=== PATIENT | female | born 1960 | race Caucasian/White ===

== ENCOUNTER → 2016-10-18 | Outpatient (CLI) | payer BC ==
[~2016-10-18] MED LIST: ATEN-51 PO; iron PO; senna PO
== END | disposition home or self-care (01) ==
LOC: EEG 10:55
DX: R26.89 Other abnormalities of gait and mobility (principal); R42 Dizziness and giddiness; H93.19 Tinnitus, unspecified ear
CPT/HCPCS: 95819

== ENCOUNTER 2016-12-21 10:57 | Day surgery (SDC) | payer BC ==
[~2016-12-21] VITALS: Ht 160 cm; Wt 85.7 kg
[2016-12-21 11:30] VITALS: Ht 160 cm; Wt 85.7 kg
[2016-12-21 13:10] VITALS: BP 133/65; PULSE 50; RESP 12
[2016-12-21] MEDS ORDERED: PROPOFOL 40 ML ONE (13:10)
[2016-12-21] MEDS ORDERED: LIDOCAINE 2% (SDV) 5 ML INJ ONE (13:10)
[2016-12-21 14:05] VITALS: BP 121/67; RESP 20
--- NOTE | 2016-12-21 15:00 | GILP ---
DATE OF PROCEDURE: 12/21/2016 PROCEDURE DONE: Colonoscopy up to cecum. ANESTHESIOLOGIST: Dr. Amaya. POSTOPERATIVE DIAGNOSIS: Normal study. DESCRIPTION OF PROCEDURE: The patient was put in left lateral decubitus after obtaining informed co nsent. After EGD, further sedation was done, monitored by the anesthesiologist. Rectal exam done a nd normal. Advanced Olympus video colonoscope all the way to cecum. Cecum, ascending colon, transv erse colon, descending colon, sigmoid colon and rectum essentially normal. Upon removal of scope, p loyda had no complication. Plan will be to observe, follow up as outpatient. Check CBC and iron l evel in a few months. If the occult bleeding continues when she is off aspirin-like medications, th en only consider further workup. Dictated By: RADHA FLORES/MARGO Conf#: [id number] DID#: [id number] CC: IGOR FONG M.D.;*End[facility]*
--- NOTE | 2016-12-25 10:16 | GILP ---
DATE OF PROCEDURE: 12/21/2016 PREOPERATIVE DIAGNOSIS: Occult bleeding. PROCEDURE DONE: Esophagogastroduodenoscopy and biopsy. ANESTHESIOLOGIST: Dr. Amaya. POSTOPERATIVE DIAGNOSES: 1. 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 2. A 2 to 3 cm sliding hiatus hernia. 3. Mild gastritis. DESCRIPTION OF PROCEDURE: The patient was put in left lateral decubitus after obtaining informed co nsent. She was sedated and monitored by Dr. Amaya and very carefully advanced an Olympus video upper endoscope into the esophagus, stomach and duodenum, and examination demonstrated between 37 to 38 c m Nicholson-like membrane noted. This was later biopsied. Examination stomach in all areas showed mi ld gastritis. Fundus, antrum and body of the stomach showed less rugae, possible early atrophic gas tritis. Biopsies were done. The duodenum easily entered through the pyloric channel, duodenal bulb , first part and second part of the duodenum normal Dear Dr. Fong, This is unremarkable; however, I will wait for biopsy report and I will consider to do the colonoscopy today. Dictated By: RADHA FLORES/MARGO Conf#: [id number] DID#: [id number] CC: IGOR FONG M.D.; IGOR FONG M.D.;*[facility]*
== END 2016-12-21 19:43 | disposition home or self-care (01) ==
LOC: GIL 10:57
PROVIDERS: ATTEND Internal Medicine
DX: K29.50 Unspecified chronic gastritis without bleeding (principal); K21.0 Gastro-esophageal reflux disease with esophagitis; K44.9 Diaphragmatic hernia without obstruction or gangrene; I10 Essential (primary) hypertension; E78.5 Hyperlipidemia, unspecified
CPT/HCPCS: 43239; 45378; 88305; 88312; Z7610; 88313